=== PATIENT | female | born 1975 | race Caucasian/White ===

== ENCOUNTER 2025-04-10 13:25 | Outpatient (AMB) | payer BC, SELFPAY ==
[2025-04-10 13:55] VITALS: BP 144/88; PULSE 69; RESP 18; TEMP 36.2; O2SAT 95
--- NOTE | 2025-04-10 13:55 | PD.RESCLINIC ---
Vital Signs 04/10/25 13:55 Weight 82.157 kg Weight Measurement Method Standing Scale BP 144/88 H Blood Pressure Source Automatic Cuff Blood Pressure Location Left Upper Arm Position Sitting Respiration 18 Pulse 69 Pulse Source Monitor Temp 97.2 F Temp Source Oral Pulse Oximetry (%) 95 Oxygen Delivery Method Room Air Allergies/Meds Allergies & Medications Allergies No Known Allergies Allergy (Verified 04/10/25 15:01) Medication Reconciliation metronidazole 500 mg tablet 500 mg PO Q8H 7 days #21 tabs 04/10/25 [Rx Confirmed 04/10/25] MA Intake Visit Data Collection New Patient or Established: Established Patient (seen at [facility] within 3 years) Seen by Clinical Staff ONLY (RN/MA): No Pain Present Currently: No Pain scale:: 0 Pain Scale Used: MaguireArsh/Numerical [employer] Practices Field Coordinator Required: No PCP or OBGYN visit in last 3 months: Yes Hx Now: No Do You Feel Safe at Home: Yes Authorities Contacted: N/A Smoking Status Smoking Status: Never smoker Immunization / Flu Flu Vaccine in the Last 12 Months: No Flu Vaccine Exclusion Criteria: No Exclusion Criteria Past Medical History Social History SMOKING STATUS: Smoking status: Never smoker SECOND HAND EXPOSURE: second hand exposure: No ALCOHOL: Alcohol Intake: Never HOUSING: Housing: House Patient Portal Questionaires PHQ-9 PHQ-2 Over the last 2 weeks, how often have you been bothered by any of the following problems? 1. Little interest or pleasure in doing things: not at all 2. Feeling down, depressed, or hopeless: not at all Total score: 0 PHQ-9 3. Trouble falling or staying asleep, or sleeping too much: Not at all 4. Feeling tired or having little energy: Not at all 5. Poor appetite or overeating: Not at all 6. Feeling bad about yourself - or that you are a failure or have let yourself or your family down: Not at all 7. Trouble concentrating on things, such as reading the newspaper or watching television: Not at all 8. Moving or speaking so slowly that other people could have noticed? - Or the opposite - being so fidgety or restless that you have been moving around a lot more than usual: not at all 9. Thoughts that you would be better off or of hurting yourself in some way: Not at all Total score: 0 If you checked off any problems, how difficult have these problems made it for you to do your work, take care of things at home, or get along with other people?: not difficult at all Source: Developed by Drs. Jitendra Rashid, Jumana Neumann, Kingsley Alba and colleagues, with an educational devorah from [employer]. Depression screen completed yes Social History Living Situation History Marital Status: Single Lives With: Family Housing: House Tobacco History Smoking Status: Never smoker Second Hand Smoke Exposure: No Alcohol History Alcohol Intake: Never Domestic Abuse History Do You Feel Safe at Home: Yes Review of Systems Report any current symptoms Only answer those that you have currently: Past Medical History Past Medical History Have you ever been diagnosed with any of the following: History of Present Illness HPI Narrative 04/10/2025: Patient is new to our practice and wanted to follow-up with event operations manager. She presented due to concern for yeast infection which started past 3 to 4 weeks. Initially, she she went to see another clinician where they found on full physical examination that she has green vaginal discharge which is most likely yeast infection and was given prescription for Diflucan as well as [id number] Monistat to help clear infection however was concerned it to be bacterial, hence she wanted to get another checkup. She has associated symptoms like dyspareunia with yeast infection. She also reported to have significant history of recurrent urinary tract infection and has been taking nitrofurantoin for prophylaxis. Presently, she denied having symptoms of burning or dysuria or any vaginal discharge however she wanted to see event operations manager for complete pelvic exam including speculum examination to know if she needs to continue with antifungal vaginal cream. Patient reported to have mild itching and stated that she has been struggling with hot flushes with headaches and nausea due to perimenopausal stage worsening from last 1 week. Her last menstrual cycle was 2 to 3 months ago. She recently started taking estrogen derivatives like supplements, magnesium and multivitamins. She also reported to have some burning pain in her left arm which was present a month ago. Of note, patient was found to have elevated blood pressure during this visit and she reported that she was checking her blood pressure at home and her diastolic was around 100 at 2-3 times. Therefore basic lab work was ordered and patient will be follow-up next week with the lab results. Patient was scheduled with MAINTENANCE MILLWRIGHT today as well for complete pelvic examination. Basic labs including CBC, CMP, lipid panel, vitamin B12 and vitamin D with urinalysis were ordered. Patient will be followed up next week for follow-up on lab results and blood pressure management. She was given a prescription for Diflucan 150 mg once daily for 3 days and metronidazole 500 mg Q8 hourly for 7 days. PMH: Menopausal hot flushes PSH: Breast implants, uterine ablation for menorrhagia, history of 4 C-sections Allergies: No known drug allergies SH: Denies smoking, drinking alcohol. No history of illicit drug use. Home medications: Estrogen derivative supplements, magnesium supplements, Diflucan and nitrofurantoin Review of Systems Review of Systems Systems Reviewed: All systems reviewed, normal except as documented Objective/Exam Narrative Physical exam: GENERAL APPEARANCE: AxOx4, generally well-appearing female in no acute distress. HEENT: NC, AT. MMM. EOMI, clear conjunctiva, oropharynx clear. NECK: Supple without lymphadenopathy. No stiffness or restricted ROM. HEART: Regularl rate and regular rhythm, normal S1/S2, no m/r/g LUNGS: CTAB, moving air well. No crackles or wheezes are heard. ABDOMEN: Soft, nontender, nondistended with good bowel sounds heard. BACK: No CVAT, no obvious deformity. EXTREMITIES: Without cyanosis, clubbing or edema. NEUROLOGICAL: Grossly nonfocal. Alert and oriented, moving all 4 extremities. CN not formally tested but appear grossly intact. Observed to ambulate with normal gait. Genitourinary: Labia minora was mildly erythematous. No mateo vaginal discharge was seen. Skin: Warm and dry without any rash. Pscyh: appropriate mood and affect Assessment & Plan Diagnosis / Problem List (1) Vaginal yeast infection: Status: Acute Assessment & Plan: ? Patient reported to have vaginal yeast infection 3 to 4 weeks ago and was taking Monistat and Diflucan. ? Pelvic examination did not reveal any mateo vaginal discharge. Vulva was coated with medication. Labia minora was mildly erythematous. Plan: ? Prescription refill for Diflucan was given 150 mg once daily for 3 days ? Patient was also seen by OB/event operations manager for complete pelvic examination and was given metronidazole 500 mg Q8 hourly for 7 days ?Follow-up with urinalysis next week (2) Hypertension screen: Status: Acute Assessment & Plan: ? Patient was found to have elevated blood pressure during this visit. She reported to have elevated blood pressure at home twice last week. Plan: ? Basic labs including CBC, CMP, lipid panel, A1c, B12 and vitamin D were ordered ?Advised to record blood pressure twice daily and will do follow-up next week to evaluate if we need to initiate antihypertensive based on BP readings and lab work ?Advised to take low-salt diet and continue exercise (3) Menopausal hot flushes: Status: Acute Assessment & Plan: ? Patient was found to have perimenopausal symptoms including hot flushes with headaches and nausea from last 2 to 3 weeks. ?Patient is currently taking estrogen derivative supplements and magnesium supplements Plan: ? Recommended follow-up with [facility] ? Patient will benefit with transdermal estrogen patch per [facility] recommendations ? Follow-up with TSH Patient was seen and discussed with attending physician, Dr.Watanakunakorn Dr. Candida MD, PGY 2 Orders: Orders Comprehensive Metabolic Panel 04/10/25 B37.31 - Acute candidiasis of vulva and vagina, Z13.6 - Encounter for screening for cardiovascular disorders Ambulatory Hemoglobin A1C 04/10/25 B37.31 - Acute candidiasis of vulva and vagina, Z13.6 - Encounter for screening for cardiovascular disorders Urinalysis 04/10/25 B37.31 - Acute candidiasis of vulva and vagina, Z13.6 - Encounter for screening for cardiovascular disorders Thyroid Stimulating Hormone 04/10/25 B37.31 - Acute candidiasis of vulva and vagina, Z13.6 - Encounter for screening for cardiovascular disorders Vitamin D 25 Hydroxy Total 04/10/25 Z13.21 - Encounter for screening for nutritional disorder CBC 04/10/25 B37.31 - Acute candidiasis of vulva and vagina, Z13.6 - Encounter for screening for cardiovascular disorders Vitamin B12 04/10/25 E53.8 - Deficiency of other specified B group vitamins Lipid Panel 04/10/25 Z13.6 - Encounter for screening for cardiovascular disorders Additional Assessment Attending note: I, Madhav Pearl MD, attest that I was physically present for the mcguire portions of the service and evaluated the patient with the resident and I reviewed and discussed the case with the resident and agree with the resident's findings and plans of care as documented above. Madhav Pearl MD Physician Billing New Patient New Patient: E/M Level 3-CPT 99523 Office Procedures [facility] Level of Care Nursing/Assessment Patient Status: Initial/New Patient Nursing Assessment/Reassessment: Medication Reconciliation, Update PMH in EMR and Vital Signs Coordination of Care: Education Complex Pt/Fam, Consent,records obtained, informed consent, Lab and Imaging orders, Results/Orders obtained and Staff clarify orders New Patient Charge New Patient Point Assignment: [id number] New Patient Point Charge: MOLASSES COLORING OPERATOR Level 3 ([id number]) TB Screening LTBI Screening: Has patient traveled, was born, or resided for at least 1 month, or frequent border crossing into a country with an elevated TB rate: No Immunosuppression, current or planned (HIV, organ transplant, treated with biologic agents, steroids, or other immunosuppression medication): No Close contact to someone with infectious TB disease during lifetime: No Homelessness or incarceration, current or past: No TB testing indicated at this time (at least 1 yes above): No
== END 2025-04-10 14:54 | disposition home or self-care (01) ==
PROVIDERS: Supervising Provider Internal Medicine; Visit Provider Student in an Organized Health Care Education/Training Program
DX: B37.31 Acute candidiasis of vulva and vagina (principal); R03.0 Elevated blood-pressure reading, without diagnosis of hypertension; N95.1 Menopausal and female climacteric states; Z79.890 Hormone replacement therapy
CPT/HCPCS: 99203; G0463

== ENCOUNTER 2025-04-10 14:38 | Outpatient (AMB) | payer BC, SELFPAY ==
[2025-04-10 15:00] VITALS: BP 144/88; PULSE 69; RESP 18; TEMP 36.5; O2SAT 98
--- NOTE | 2025-04-10 15:00 | GYNCLNT_ITS ---
Vital Signs 04/10/25 15:00 Weight 82 kg Weight Measurement Method Standing Scale BP 144/88 H Blood Pressure Source Automatic Cuff Blood Pressure Location Left Upper Arm Position Sitting Respiration 18 Pulse 69 Pulse Source Monitor Temp 97.7 F Temp Source Oral Pulse Oximetry (%) 98 Oxygen Delivery Method Room Air Allergies/Home Meds Allergies & Medications Allergies No Known Allergies Allergy (Verified 04/10/25 15:01) Medication Reconciliation fluconazole 150 mg tablet 150 mg PO QDAY 3 days #3 tabs 04/10/25 [Rx Confirmed 04/10/25] metronidazole 500 mg tablet 500 mg PO Q8H 7 days #21 tabs 04/10/25 [Rx Confirmed 04/10/25] Intake Visit Data Collection New Patient or Established: Established Patient (seen at [facility] within 3 years) Reason for Visit:: obc Seen by Clinical Staff ONLY (RN/MA): No Aircraft Instrument Mechanic Required: No Do You Feel Safe at Home: Yes Authorities Contacted: N/A PCP or OBGYN visit in last 3 months: Yes Hx Now: No Are you currently on any form of Control: No Pain Present Currently: No Pain Scale Used: Maguire-Colindres/Numerical Pain scale:: 0 Smoking Status Smoking Status: Never smoker 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 1. Little interest or pleasure in doing things: not at all 2. Feeling down, depressed, or hopeless: not at all Total score: 0 PHQ-9 3. Trouble falling or staying asleep, or sleeping too much: Not at all 4. Feeling tired or having little energy: Not at all 5. Poor appetite or overeating: Not at all 6. Feeling bad about yourself - or that you are a failure or have let yourself or your family down: Not at all 7. Trouble concentrating on things, such as reading the newspaper or watching television: Not at all 8. Moving or speaking so slowly that other people could have noticed? - Or the opposite - being so fidgety or restless that you have been moving around a lot more than usual: not at all 9. Thoughts that you would be better off or of hurting yourself in some way: Not at all Total score: 0 If you checked off any problems, how difficult have these problems made it for you to do your work, take care of things at home, or get along with other people?: not difficult at all Source: Developed by Drs. Jitendra Rashid, Jumana Neumann, Kingsley Alba and colleagues, with an educational devorah from [employer]. Depression screen completed yes Social History Living Situation History Lives With: Family Housing: House Tobacco History Smoking Status: Never smoker Second Hand Smoke Exposure: No Alcohol History Alcohol Intake: Never Domestic Abuse History Do You Feel Safe at Home: Yes History of Present Illness HPI Narrative Patient is a perimenopausal female presenting with recurrent vaginal symptoms suggestive of yeast infection and worsening hot flashes. She reports experiencing vaginal itching and discharge on and off for about a month, initially with green discharge. Patient attempted self-treatment with [id number] medications and Diflucan, which provided temporary relief before symptoms returned. She experienced pain during intercourse at symptom onset, which was unusual for her. Vaginal discomfort has persisted intermittently for about a month. Patient reports worsening hot flashes, particularly over the last week, waking up approximately 6 times each night. She mentions not having a menstrual period for 2-3 months. Last Pap smear was in August or September of the previous year, reported as normal. Patient is due for a mammogram this summer but lacks a current order due to the closure of her previous medical practice. Medical history includes perimenopausal symptoms. Current medications include Clotrimazole (Oxistat), used 2 nights ago. Patient works as a teacher. Review of systems positive for hot flashes, vaginal itching, vaginal discharge, and dyspareunia. Review of Systems Review of Systems Systems Reviewed: All systems reviewed, normal except as documented Exam Narrative Physical exam: - General: Patient undressed below the waist for examination. - Genitourinary: Speculum exam performed. Blanching (white coloration) of vaginal mucosa observed. Significant vaginal discharge noted. Office Procedures OB Clinic LOC & Office Proc's Nursing/Assessment Patient Status: Established Patient OB Clinic Nursing Assessment: Medication Reconciliation, Update PMH in EMR and Vital Signs OB Clinic Coordination of Care: Education Complex Pt/Fam, Consent,records obtained, informed consent, Lab and Imaging orders and Staff clarify orders Special Needs: Heart tones Miscellaneous Interventions: Pelvic Comp w/OB cult Established Patient Charge Established Patient Point Assignment: 125 Established Patient Point Charge: EP Level 4 (120-155) Assessment & Plan Diagnosis / Problem List (1) Menopausal hot flushes: Status: Acute (2) Encounter for screening mammogram for malignant neoplasm of breast: Status: Acute (3) Acute vaginitis: Status: Acute Plan Recurrent Vulvovaginal Candidiasis (RVVC): - Patient reports symptoms consistent with RVVC for 1 month. - Prescribed metronidazole 500 mg PO BID for 7 days. - Prescribed fluconazole 150 mg PO daily for 3 days. - Obtained vaginal culture, awaiting results (72-hour turnaround). - Follow up to review culture results and adjust treatment if necessary. Perimenopausal Symptoms: - Ordered FSH and estradiol levels to confirm menopausal status. - Deferred decision on hormone replacement therapy until lab results are available. - Scheduled follow-up to discuss lab results and potential HRT options. Preventive Care: - Generated referral for routine screening mammogram. - Staff to obtain insurance approval for mammogram and contact patient. - Scheduled follow-up with Dr. Stone for annual exam and routine care. Laboratory Studies: - Ordered comprehensive metabolic panel and lipid profile through [email or web address]. - Will review results and follow up with patient as needed.
== END 2025-04-10 14:53 | disposition home or self-care (01) ==
LOC: HODSOBC 14:38
PROVIDERS: Supervising Provider Obstetrics & Gynecology; Visit Provider Obstetrics & Gynecology
DX: N76.0 Acute vaginitis (principal); N95.1 Menopausal and female climacteric states; R23.2 Flushing; B37.32 Chronic candidiasis of vulva and vagina; Z12.31 Encounter for screening mammogram for malignant neoplasm of breast
CPT/HCPCS: 99213; 99214; G0463

== ENCOUNTER → 2025-04-10 | Outpatient (CLI) | payer BC, SELFPAY ==
[2025-04-10 15:38] LABS: Collection Type, Urine Clean Catch
[2025-04-10 16:36] LABS: Basophils # (Auto) 0.1 Thou/mm3 (0.0-0.2); Basophils % (Auto) 1 % (0-2.5); Eosinophils # (Auto) 0.1 Thou/mm3 (0.0-0.5); Eosinophils % (Auto) 1 % (0-10); Hematocrit 44.6 % (36.0-46.0); Hemoglobin 14.5 g/dL (12.0-16.0); Immature Granulocytes % (Auto) 0 % (0-0); Immature Granulocytes Auto 0.02 Thou/mm3 (0.00-0.00); Lymphocytes # (Auto) 2.2 Thou/mm3 (1.0-4.8); Lymphocytes % (Auto) 24 % (10-50); Mean Corpuscular HGB Conc 32.5 g/dl (31.0-37.0); Mean Corpuscular Hemoglobin 29.7 pg (25.0-35.0); Mean Corpuscular Volume 91 fL (80-100); Monocytes # (Auto) 0.7 Thou/mm3 (0.0-0.8); Monocytes % (Auto) 7 % (0-12); Neutrophils % (Auto) 67 % (37-80); Nucleated Red Blood Cell % 0 /100 WBC (0); Platelet Count 364 Thou/mm3 (140-440); RDW Standard Deviation 41.4 fL (36.4-46.3); Red Blood Count 4.88 Miln/mm3 (4.00-5.20)
[2025-04-10 16:49] LABS: Bacteria,Urine Rare; Bilirubin,Urine Negative (Negative); Blood,Urine Negative (Negative); Clarity,Urine Clear (Clear/Hazy); Color,Urine Lt-Yellow (Lt Yel-Yel); Glucose, Urine Negative (Negative); Ketones,Urine Negative (Negative); Leukocyte Esterase,Urine Positive (Negative); Nitrite,Urine Negative (Negative); Protein,Urine Negative (Neg - Trace); RBC,Urine 2 /hpf (0-3); Specific Gravity,Urine 1.013 (1.001-1.035); Squamous Epithelial Cell,Urine < 1 /hpf (0-5); Urobilinogen,Urine Negative mg/dL (0.0-1.0); WBC,Urine 1 /hpf (0-5)
[2025-04-10 16:53] LABS: Glucose Estimated Average 97 mg/dL (80-131)
[2025-04-10 16:57] LABS: Vitamin B12 786 pg/mL (211-911); Vitamin D 25 Hydroxy Total 33.3 ng/mL (7.3-40.2)
[2025-04-10 17:00] LABS: Alanine Aminotransferase 21 U/L (10-49); Albumin, Serum 4.5 gm/dL (3.5-5.0); Alkaline Phosphatase 62 U/L (46-116); Anion Gap 11 (7-16); Aspartate Amino Transferase 25 U/L (0-34); BUN/Creatinine Ratio 12 Ratio (12-20); Blood Urea Nitrogen 12 mg/dL (9-23); Calcium 9.4 mg/dL (8.3-10.6); Calcium (Corrected) 9.4 mg/dL (8.5-10.1); Carbon Dioxide 28.5 mMol/L (20.0-31.0); Chloride 104 mMol/L (98-107); Cholesterol 186 mg/dL (132-200); Globulin 2.3 gm/dL (2.3-3.5); Glucose 90 mg/dL (74-106); HDL Cholesterol 62 mg/dL (40-60); LDL Cholesterol,Calculated 105 mg/dL (0-130); Osmolality,Calculated 284 (275-295); Potassium 3.8 mMol/L (3.4-5.1); Sodium 143 mMol/L (136-145); Thyroid Stimulating Hormone 0.49 uIU/mL (0.55-4.78); Total Protein 6.8 gm/dL (5.7-8.2); Triglycerides 93 mg/dL (30-150); eGFR > 60 See Note
== END | disposition home or self-care (01) ==
LOC: COPL 15:09
PROVIDERS: Referring Provider Student in an Organized Health Care Education/Training Program; Visit Provider Student in an Organized Health Care Education/Training Program
DX: B37.31 Acute candidiasis of vulva and vagina (principal); Z13.6 Encounter for screening for cardiovascular disorders; Z13.21 Encounter for screening for nutritional disorder; E53.8 Deficiency of other specified B group vitamins
CPT/HCPCS: 36415; 80053; 80061; 81001; 82306; 82607; 83036; 84443; 85025

== ENCOUNTER 2025-04-17 15:43 | Outpatient (AMB) | payer BC, SELFPAY ==
--- NOTE | 2025-04-17 15:44 | ACNOTE_ITS ---
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 PCP or OBGYN visit in last 3 months: Yes Date of Last PCP or OBGYN visit: 04/10/25 Do You Feel Safe at Home: Yes Authorities Contacted: N/A Smoking Status Smoking Status: Never smoker For Televisit only Telemed Video/Phone Visit: Yes Verbal consent obtained for Telemed visit?: Yes Verbal Consent witness name: BRANDY NIXON/MANUELA CEJA Telemed Video/Phone visit w/Clinical Staff: 11-20 min Immunization / Flu Flu Vaccine in the Last 12 Months: Yes Flu Vaccine Exclusion Criteria: Already Received Past Medical History Social History SMOKING STATUS: Smoking status: Never smoker SECOND HAND EXPOSURE: second hand exposure: No ALCOHOL: Alcohol Intake: Never HOUSING: Housing: House Patient Portal Questionaires PHQ-9 PHQ-2 Over the last 2 weeks, how often have you been bothered by any of the following problems? 1. Little interest or pleasure in doing things: not at all PHQ-9 8. Moving or speaking so slowly that other people could have noticed? - Or the opposite - being so fidgety or restless that you have been moving around a lot more than usual: not at all Source: Developed by Drs. Jitendra Rashid, Jumana Neumann, Kingsley Alba and colleagues, with an educational devorah from [employer]. Social History Living Situation History Lives With: Family Housing: House Tobacco History Smoking Status: Never smoker Second Hand Smoke Exposure: No Alcohol History Alcohol Intake: Never Domestic Abuse History Do You Feel Safe at Home: Yes Review of Systems Report any current symptoms Only answer those that you have currently: Past Medical History Past Medical History Have you ever been diagnosed with any of the following: History of Present Illness HPI Narrative 04/10/2025: Patient is new to our practice and wanted to follow-up with senior contracts manager. She presented due to concern for yeast infection which started past 3 to 4 weeks. Initially, she she went to see another clinician where they found on full physical examination that she has green vaginal discharge which is most likely yeast infection and was given prescription for Diflucan as well as [id number] Monistat to help clear infection however was concerned it to be bacterial, hence she wanted to get another checkup. She has associated symptoms like dyspareunia with yeast infection. She also reported to have significant history of recurrent urinary tract infection and has been taking nitrofurantoin for prophylaxis. Presently, she denied having symptoms of burning or dysuria or any vaginal discharge however she wanted to see senior contracts manager for complete pelvic exam including speculum examination to know if she needs to continue with antifungal vaginal cream. Patient reported to have mild itching and stated that she has been struggling with hot flushes with headaches and nausea due to perimenopausal stage worsening from last 1 week. Her last menstrual cycle was 2 to 3 months ago. She recently started taking estrogen derivatives like supplements, magnesium and multivitamins. She also reported to have some burning pain in her left arm which was present a month ago. Of note, patient was found to have elevated blood pressure during this visit and she reported that she was checking her blood pressure at home and her diastolic was around 100 at 2-3 times. Therefore basic lab work was ordered and patient will be follow-up next week with the lab results. Patient was scheduled with [facility] today as well for complete pelvic examination. Basic labs including CBC, CMP, lipid panel, vitamin B12 and vitamin D with urinalysis were ordered. Patient will be followed up next week for follow-up on lab results and blood pressure management. She was given a prescription for Diflucan 150 mg once daily for 3 days and metronidazole 500 mg Q8 hourly for 7 days. 04/17/2025: Patient had his tele?appointment for follow-up on lab results and blood pressure. She reported that she had worsening signs symptoms including burning sensation, dysuria and fever chills from last 1 week as she was traveling to [place]. She also reported to have itchiness and feeling that her yeast infection is coming back. She did not record her blood pressure and reported that she did not had symptoms of dizziness or headache. Patient was in formed regarding her labs labs from 04/10/2025 showed CBC within normal limits with hemoglobin 14.5. Chemistry panel showed electrolytes within normal limits. Kidney functions were stable with BUN 12 and creatinine 1.0. A1c 5.0. Cholesterol 186. LDL 105. HDL 62. Vitamin B12 786. Vitamin D 33.3. TSH was 0.49 slightly below normal. Urinalysis was unremarkable. Free T4 was ordered to rule out hyperthyroidism. She was informed a few T4 is unremarkable is most likely subclinical hyperthyroidism and can be monitored and follow-up in next 3 to 4 months. Her vaginal swab test came positive for bacterial vaginosis and patient already picked up prescription for Flagyl 500 mg twice daily for 7 days. Due to her active symptoms of urinary tract infection she was given a prescription for ciprofloxacin 500 mg twice daily for 5 days. She was notified that her vaginal swab test was negative for Nelia, chlamydia, gonorrhea and trichomonas. Patient will be having her hormonal test including FSH, LH, fasting lipid panel and free T4 at [facility] in [place]. Urine culture was added to evaluate for any resistant bug infection given history of frequent UTIs. Prescription for nitrofurantoin was given for prophylaxis for recurrent UTI. Review of Systems Review of Systems Systems Reviewed: All systems reviewed, normal except as documented Objective/Exam Narrative Physical exam: tele-appt Assessment & Plan Diagnosis / Problem List (1) Urinary tract infection: Status: Acute Qualifiers: Hematuria presence: without hematuria Assessment & Plan: ? Patient reported to have burning sensation with dysuria and fever chills from last 1 week while her visit at [place]. ? Urinalysis only showed trace WBCs with positive leukocyte esterase Plan: ? Recommended to take ciprofloxacin 500 mg twice daily for 5 days ? Follow-up on urine culture to evaluate for any resistant bug infection due to history of recurrent UTIs (2) Need for prophylaxis against urinary tract infection: Status: Acute Assessment & Plan: ? Patient has recurrent history of urine tract infection Plan: ? Once ciprofloxacin is completed for 5 days due to active UTI patient can continue nitrofurantoin 100 mg at bedtime for UTI prophylaxis (3) Bacterial vaginosis: Status: Acute Assessment & Plan: Bacterial Vaginosis: ?Patient's vaginal swab test came positive for bacterial vaginosis. ? Urinalysis was positive for leukocyte Estrace with trace WBCs. ?Vaginal swab test was negative for Nelia, trichomonas, chlamydia and Neisseria Plan: ? Recommended to take Flagyl 500 mg 2 times a day for 7 days ?Patient already have prescription for Flagyl from last week (4) Hypertension screen: Status: Acute Assessment & Plan: Screen for hypertension ? Patient did not record her blood pressure at home. However reported that she had no symptoms of headache or dizziness. ? Labs showed CBC unremarkable with hemoglobin 14.5. Chemistry panel showed electrolytes within normal limits. Kidney function showed BUN 12 and creatinine 1.0. A1c was normal 5.0. LDL 105, HDL 62 and cholesterol 186. Vitamin B12 and D were unremarkable. ? TSH was 0.49 slightly below normal. Plan: ? Advised to continue low-salt diet and exercise ? Free T4 ordered to evaluate and rule out hyperthyroidism. If free T4 comes back normal most likely subclinical hypothyroidism and only needs monitoring ? Recommended follow-up on thyroid functions after 3 to 4 months ?No antihypertensive recommended at this point Patient was discussed with attending physician, Dr.[place] Dr. Candida MD, PGY 2 Additional Assessment Attending note: I, Madhav Pearl MD, attest that I was physically present for the mcguire p ortions of the service completed via telehealth, and I reviewed and discussed the case with the resident and agree with the resident's plans of care as documented above. Madhav Pearl MD Physician Billing Established Patient Established Patient: E/M Level 2-CPT 57092
== END 2025-04-17 16:34 | disposition home or self-care (01) ==
LOC: HODAHC 15:43
PROVIDERS: PCP Student in an Organized Health Care Education/Training Program; Referring Provider Student in an Organized Health Care Education/Training Program; Supervising Provider Internal Medicine; Visit Provider Student in an Organized Health Care Education/Training Program
DX: N76.0 Acute vaginitis (principal); Z13.6 Encounter for screening for cardiovascular disorders
CPT/HCPCS: 99212; G0463